=== PATIENT | female | born 1995 | race Caucasian/White ===

== ENCOUNTER 2024-03-02 00:41 | Emergency (ER) | payer OTHER, SELFPAY ==
[2024-03-02 00:45] VITALS: BP 126/79; PULSE 70; RESP 18; TEMP 36.9; O2SAT 98
[2024-03-02 05:41] LABS: Basophils Percent Auto 0.6 % (0.2-1.2); Eosinophils Absolute Auto 0.1 K/mm3 (0-0.3); Eosinophils Percent Auto 0.9 % (0-4.4); Hematocrit 38.3 % (37.0-47.0); Hemoglobin 13.4 g/dL (12.0-15.0); Immature Granulocyte Absolute 0.02 K/mm3 (0.00-0.031); Immature Granulocyte Percent A 0.3 % (0-0.5); Lymphocytes Absolute Auto 1.45 K/mm3 (0.9-3.2); Lymphocytes Percent Auto 20.9 % (18.3-44.2); Mean Corpuscular Hemoglobin 33.5 pg (26-34); Mean Corpuscular Volume 95.8 fl (80-100); Mean Platelet Volume 9.4 fl (7.4-10.4); Monocytes Absolute Auto 0.4 K/mm3 (0.1-0.6); Monocytes Percent Auto 5.3 % (2.6-8.5); Platelet Count Result 238 k/mm3 (150-375); Red Cell Distribution Width 10.7 % (11.5-14.5); White Blood Count 6.9 K/mm3 (4.5-10.0)
[2024-03-02 05:46] VITALS: BP 122/74; PULSE 66; PULSE 67; RESP 18; O2SAT 99
[2024-03-02 05:50] LABS: Anion Gap 4 mmol/L (4-12); Blood Urea Nitrogen 18 mg/dL (7-17); Calcium 9.6 mg/dL (8.4-10.2); Carbon Dioxide 26 mmol/L (22-30); Chloride 104 mmol/L (98-107); Estimated CRCL calculation 74 ml/min; Estimated Glomerular Filt Rate > 60; Glucose 101 mg/dL (65-110); Magnesium 2.1 mg/dL (1.6-2.3); Potassium 4.3 mmol/L (3.4-5.0); Sodium 134 mmol/L (137-145)
--- NOTE | 2024-03-02 08:41 | ED.DIZZY ---
HPI - Dizziness General Chief Complaint: Dizziness Stated Complaint: dizzy Time Seen by Provider: 03/02/24 04:31 History of Present Illness HPI Narrative: 29-year-old female that is approximately 4 weeks complaining of right-sided breast pain and tenderness. She states that she has been having some pain with pumping but no decreased milk output. She describes subjective fever and chills at home without any measurable temperature. Dizziness that started prior to arrival. Patient states that she is concerned that she has mastitis given her right-sided breast pain and generalized symptoms. Otherwise was uncomplicated and child is doing well at home and this was her 1st . Patient denies any other complaints such as injuries, trauma to the nipple or breast area or any other symptoms such as chest pain, shortness a breath, nausea, vomiting, headache, vision changes, leg swelling, abdominal pain or back pain. Related Data Allergies Allergy/AdvReac Type Severity Reaction Status Date / Time No Known Allergies Allergy Verified 03/02/24 05:48 Review of Systems Review of Systems: As reviewed above in HPI [facility] Past Medical History Medical History Protein S deficiency Factor 5 Leiden mutation, heterozygous Migraines Family History Family History Mother Thyroid cancer Social History Social History Smoking status: Never smoker Alcohol intake: never Substance use: never Living arrangements: with family Occupation/Education: occupation Gender identity (if verbalized by the patient): Female Sexual Orientation (if Verbalized by the Patient): Straight or Heterosexual Exam Narrative: GENERAL: [Well-appearing, well-nourished, and in no acute distress.] HEAD: [Normocephalic, atraumatic.] EYES: [PERRLA and EOMI.] ENT: Nares clear, no rhinorrhea or epistaxis. Mucous membranes moist. NECK: Supple. CHEST: [Clear to auscultation. No respiratory distress.] Supervisor/Port Director examination of the breasts shows tenderness in the 4 to 5 o'clock position of the right breast without any overlying skin changes or induration. No fluctuance or concerning abscess formation. HEART: [Regular rate and rhythm]. No murmur heard. [Normal peripheral pulses.] ABDOMEN: [Soft, nondistended], [nontender], [No rigidity or guarding] EXTREMITIES: Normal range of motion. [No edema.] SKIN: Warm, dry, no rash. NEURO: [No focal deficits]. Alert and oriented [x3.] PSYCH: [Normal mood and affect.] Course Vital Signs Vital signs: Vital Signs Temperature 36.9 C 03/02/24 00:45 Pulse Rate 70 03/02/24 00:45 Respiratory Rate 18 03/02/24 00:45 Blood Pressure 126/79 03/02/24 00:45 Pulse Oximetry 98 03/02/24 00:45 Oxygen Delivery Room Air 03/02/24 00:45 Temperature 36.9 C 03/02/24 00:45 Pulse Rate 67 03/02/24 05:46 Respiratory Rate 18 03/02/24 05:46 Blood Pressure 122/74 03/02/24 05:46 Pulse Oximetry 99 03/02/24 05:46 Oxygen Delivery Room Air 03/02/24 00:45 MDM - Dizziness MDM Narrative Medical decision making narrative: 29-year-old female that is approximately 4 weeks presenting to the emergency department with concerns of having mastitis. She states that she is having some right breast tenderness and pain with her child latching and sucking as well as when pumping. She is describing some subjective fever and chills as well as dizziness but no headache, vision changes, chest pain, shortness a breath, abdominal pain, nausea, vomiting. She is afebrile with normal reassuring vital signs here. She does have some firmness and tenderness in the 4-5 o'clock position of the right breast that is localized but has no overlying skin changes, dimpling any cellulitis or any induration or fluctuance consistent with an abscess. Will obtain basic laboratory studies to see if there is any significant inflammatory response her leukocytosis or any other concerns and treat her for mastitis at this time based on clinical exam and history taking. No current indications for any ultrasonography images. No leukocytosis or anemia. Normal electrolytes, otherwise unremarkable workup. Will send her home with dicloxacillin and instructions on how to take the antibiotic and other analgesic strategies for her mastitis. She will have to follow up with her PCP and OBGYN outpatient and return if she has any worsening or new concerns. Medical Records Attestation: I reviewed the patient's medical records. Lab Data Attestation: I reviewed the patient's lab results. 03/02/24 05:33 03/02/24 05:33 Labs: Lab Results 03/02/24 Range/Units 05:33 WBC 6.9 (4.5-10.0) K/mm3 RBC 4.00 L (4.2-5.4) M/mm3 Hgb 13.4 (12.0-15.0) g/dL Hct 38.3 (37.0-47.0) % MCV 95.8 (80-100) fl MCH 33.5 (26-34) pg MCHC 35.0 (32-36) g/dl RDW 10.7 L (11.5-14.5) % Plt Count 238 (150-375) k/mm3 MPV 9.4 (7.4-10.4) fl Immature Gran % (Auto) 0.3 (0-0.5) % Neut % (Auto) 72.0 (45.5-73.1) % Lymph % (Auto) 20.9 (18.3-44.2) % [place] % (Auto) 5.3 (2.6-8.5) % Eos % (Auto) 0.9 (0-4.4) % Baso % (Auto) 0.6 (0.2-1.2) % Lymph # (Auto) 1.45 (0.9-3.2) K/mm3 [place] # (Auto) 0.4 (0.1-0.6) K/mm3 Eos # (Auto) 0.1 (0-0.3) K/mm3 Baso # (Auto) 0.0 (0.0-0.1) K/mm3 Abs Immat Gran (auto) 0.02 (0.00-0.031) K/mm3 Absolute Neuts (auto) 5.0 (1.3-6.7) K/mm3 Absolute Nucleated RBC 0.000 (0.0-0.012) K/mm3 Nucleated RBC % 0.0 (0.0-0.2) % Sodium 134 L (137-145) mmol/L Potassium 4.3 (3.4-5.0) mmol/L Chloride 104 (98-107) mmol/L Carbon Dioxide 26 (22-30) mmol/L Anion Gap 4 (4-12) mmol/L BUN 18 H (7-17) mg/dL Creatinine 0.80 (0.7-1.0) mg/dL Estim Creat Clear Calc 74 ml/min Estimated GFR > 60 (59 - ) Glucose 101 (65-110) mg/dL Calcium 9.6 (8.4-10.2) mg/dL Magnesium 2.1 (1.6-2.3) mg/dL Discharge Plan Discharge Clinical Impression: Mastitis during puerperium Patient Disposition: Home, Self-Care Condition: Stable Instructions: Antibiotic Form, Dicloxacillin (By mouth), Mastitis (ED) Additional Instructions: You have signs and symptoms of mastitis likely lactational which could be both infectious or noninfectious in etiology however given your flu like symptoms including fever, chills and dizziness we will treat you with a 10 day course of dicloxacillin which is safe for breast-feeding and needs to be taken 500 mg every 6 hours for the next 10 days. If you have any worsening pain or persistent symptoms or any persistent fever development please seek re-evaluation with your OBGYN or return to the ED. Recommendations for pain control including NSAIDs and Tylenol and continue pumping and removing the milk to allow the ducts to drain of breast milk. Warm compresses and gentle massaging of the area will also assist. Patient Language: [place] Prescriptions: New dicloxacillin 500 mg capsule 500 mg PO Q6H 10 Days Qty: 40 0RF No Action Nurtec ODT 75 mg tablet,disintegrating 75 mg PO ONCE PRN (Reason: migraine headache) Qty: 8 3RF Rx Instructions: as a single dose norethindrone (contraceptive) 0.35 mg tablet 0.35 mg PO DAILY Qty: 84 3RF amitriptyline 10 mg tablet 10 mg PO QHS Qty: 30 4RF Follow-up/Referrals: UNKNOWN,DOCTOR [Primary Care Provider] - Time of Disposition: 06:05
== END 2024-03-02 06:10 | disposition home or self-care (01) ==
PROVIDERS: Emergency Provider Student in an Organized Health Care Education/Training Program
DX: O91.22 Nonpurulent mastitis associated with the puerperium (principal); O99.13 Other diseases of the blood and blood-forming organs and certain disorders involving the immune mechanism complicating the puerperium; D68.51 Activated protein C resistance; D68.59 Other primary thrombophilia
CPT/HCPCS: 36415; 80048; 83735; 85025; 99283